=== PATIENT | female | born 1990 | race Hispanic/Latino ===

== ENCOUNTER 2018-11-28 18:23 | Emergency (ER) | payer OTHER, SELFPAY ==
[~2018-11-28 18:23] MED LIST: PREN1TAB89 PO
[2018-11-28 19:18] LABS: BASOPHILS % (AUTO) 0.5 % (0.0-5.0); EOSINOPHILS % (AUTO) 1.9 % (0.0-8.0); HEMATOCRIT 41.9 % (36-48); LYMPHOCYTES % (AUTO) 17.3 % (21.0-51.0); MEAN CORPUSCULAR HEMOGLOBIN 31.3 pg (27.0-33.0); MEAN CORPUSCULAR HGB CONC 33.9 g/dL (32.0-36.0); MEAN CORPUSCULAR VOLUME 92.6 fL (79-99); MONOCYTES % (AUTO) 4.9 % (3.0-13.0); NEUTROPHILS % (AUTO) 75.4 % (40.0-77.0); PLATELET COUNT (AUTO) 223 K/uL (130-400); RED BLOOD CELL COUNT(AUTO) 4.52 MIL/uL (4.00-5.50); RED CELL DISTRIBUTION WIDTH 12.8 % (11.0-15.5); WHITE BLOOD COUNT (AUTO) 11.2 K/uL (4.8-10.8)
== END 2018-11-28 20:05 | disposition home or self-care (01) ==
LOC: EDH 18:23
DX: O20.9 Hemorrhage in early pregnancy, unspecified (principal); Z3A.01 Less than 8 weeks gestation of pregnancy
CPT/HCPCS: 36415; 76817; 84702; 85025; 86900; 86901

== ENCOUNTER 2022-01-26 08:13 | Emergency (ER) | payer MEDICAID ==
[~2022-01-26] VITALS: Ht 162.6 cm; Wt 54.9 kg
[2022-01-26] MEDS ORDERED: ONDANSETRON 4MG INJ IVP ONE (08:30)
[2022-01-26] MEDS ORDERED: MORPHINE 2 MG SYG IVP ONE (08:30)
[2022-01-26] MEDS ORDERED: LACTATED RINGERS 1000ML 1,000 ML IV ONE (08:30)
[2022-01-26] MEDS ORDERED: PANTOPRAZOLE 40 MG/VIAL IVP ONE (08:30)
[2022-01-26 09:02] LABS: BASOPHILS % (AUTO) 0.5 % (0.0-5.0); EOSINOPHILS % (AUTO) 0.3 % (0.0-8.0); HEMATOCRIT 39.9 % (36-48); LYMPHOCYTES % (AUTO) 20.2 % (21.0-51.0); MEAN CORPUSCULAR HEMOGLOBIN 30.6 pg (27.0-33.0); MEAN CORPUSCULAR HGB CONC 33.8 g/dL (32.0-36.0); MEAN CORPUSCULAR VOLUME 90.5 fL (79-99); MONOCYTES % (AUTO) 10.2 % (3.0-13.0); NEUTROPHILS % (AUTO) 68.6 % (40.0-77.0); PLATELET COUNT (AUTO) 242 K/uL (130-400); RED BLOOD CELL COUNT(AUTO) 4.41 MIL/uL (4.00-5.50); RED CELL DISTRIBUTION WIDTH 12.4 % (11.0-15.5); WHITE BLOOD COUNT (AUTO) 8.8 K/uL (4.8-10.8)
[2022-01-26 09:13] LABS: CREATININE 1.2 mg/dL (0.5-1.5); POTASSIUM 3.5 mmol/L (3.5-5.1)
[2022-01-26 09:17] LABS: ALBUMIN 3.7 g/dL (3.5-5.0); TOTAL PROTEIN, SERUM 7.1 g/dL (6.0-8.3)
[2022-01-26] MEDS ORDERED: MORPHINE 4 MG SYG IVP ONE (10:00)
[2022-01-26] MEDS ORDERED: HYDR-4060 PO ×2 (10:13→11:11)
[2022-01-26] MEDS ORDERED: PROMETHAZINE HCL 25 MG/ML 1ML AMPULE IVPB SCH (11:00)
[2022-01-26 11:59] VITALS: BP 120/74
== END 2022-01-26 12:00 | disposition home or self-care (01) ==
LOC: EDH 08:13
DX: K29.00 Acute gastritis without bleeding (principal)
CPT/HCPCS: 99284; 96374; 96375; 96361; 80053; 83690; 85025; 81025; 36415; 96376; J7120; J2550; J2405; J2270; S0164; C9113

== ENCOUNTER 2023-09-06 10:09 | Emergency (ER) | payer MEDICAID, OTHER ==
[~2023-09-06] VITALS: Ht 165.1 cm; Wt 52.6 kg
[~2023-09-06 10:09] MED LIST changes: +HYDR-4060 PO
[2023-09-06] MEDS: 0.9%NACL 1000ML 1,000 ML IV ONE (10:47)
[2023-09-06 10:51] LABS: BASOPHILS # (AUTO) 0.03 K/uL (0.00-0.20); BASOPHILS % (AUTO) 0.5 % (0.0-5.0); EOSINOPHILS # (AUTO) 0.07 K/uL (0.00-0.70); EOSINOPHILS % (AUTO) 1.3 % (0.0-8.0); HEMATOCRIT 35.3 % (36-48); IMMATURE GRANULOCYTE ABSOLUTE 0.01 K/uL (0-1); LYMPHOCYTES # (AUTO) 1.4 K/uL (1.0-4.8); LYMPHOCYTES % (AUTO) 24.8 % (21.0-51.0); MEAN CORPUSCULAR HEMOGLOBIN 30.5 pg (27.0-33.0); MEAN CORPUSCULAR VOLUME 89.6 fL (79-99); MONOCYTES # (AUTO) 0.5 K/uL (0.1-1.0); MONOCYTES % (AUTO) 8.2 % (3.0-13.0); NEUTROPHILS # (AUTO) 3.6 K/uL (1.8-7.7); PLATELET COUNT (AUTO) 212 K/uL (130-400); RED BLOOD CELL COUNT(AUTO) 3.94 MIL/uL (4.00-5.50); RED CELL DISTRIBUTION WIDTH 13.1 % (11.0-15.5); WHITE BLOOD COUNT (AUTO) 5.5 K/uL (4.8-10.8)
[2023-09-06 11:03] LABS: CREATININE 0.7 mg/dL (0.5-1.0); POTASSIUM 3.3 mmol/L (3.5-5.1)
[2023-09-06 11:05] LABS: ALBUMIN 3.6 g/dL (3.5-5.0); BILIRUBIN,TOTAL 0.4 mg/dL (0.2-1.0); TOTAL PROTEIN, SERUM 7.2 g/dL (6.0-8.3)
[2023-09-06 14:06] LABS: APPEARANCE,URINE CLEAR (CLEAR); BILIRUBIN,URINE NEGATIVE (NEGATIVE); COLOR,URINE LIGHT-YELLOW (YELLOW); GLUCOSE, URINE (UA) NEGATIVE (NEGATIVE); KETONES,URINE 20 mg/dL (NEGATIVE); LEUKOCYTE ESTERASE ,URINE NEGATIVE Leu/uL (NEGATIVE); NITRATE,URINE NEGATIVE (NEGATIVE); OCCULT BLOOD,URINE LARGE (NEGATIVE); PH,URINE 5.5 (5.0-8.0); PROTEIN,URINE NEGATIVE (NEGATIVE); UROBILINOGEN,URINE 0.2 mg/dL (0.2-1.0)
[2023-09-06 14:07] LABS: ADD UA MICROSCOPIC YES
[2023-09-06] MEDS: KETOROLAC 30MG VIAL (30MG/ML) IVP ONE (14:07)
[2023-09-06 14:26] LABS: BACTERIA,URINE RARE /HPF (None Seen); MUCUS,URINE RARE LPF (None Seen); SQUAMOUS EPITHELIAL CELL,UR RARE /HPF (0-2); WBC,URINE 0-1 /HPF (0-1)
[2023-09-06 14:51] VITALS: BP 114/72; PULSE 64; RESP 18; O2SAT 98
== END 2023-09-06 14:58 | disposition home or self-care (01) ==
LOC: EDH 10:09
DX: N83.202 Unspecified ovarian cyst, left side (principal); N83.201 Unspecified ovarian cyst, right side; Z79.899 Other long term (current) drug therapy; Z98.890 Other specified postprocedural states
CPT/HCPCS: 99285; 96374; 76830; 96361; 80053; 84703; 85025; 86850; 86900; 86901; 81001; 36415; J7030; J1885